=== PATIENT | male | born 2000 | race Caucasian/White ===

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

== ENCOUNTER 2022-06-11 02:23 | Emergency (ER) | payer OTHER, SELFPAY ==
[2022-06-11 02:45] VITALS: BP 144/68; PULSE 100; RESP 18; O2SAT 95
--- NOTE | 2022-06-11 02:59 | ED_ITS ---
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 Still has female pelvic organs. Is on testosterone. No longer has menstrual cycles is here for evaluation of less than 8 hours of lower abdominal discomfort. He stated that he did have a loose bowel movement earlier today. He would not describe it as diarrhea just soft. Some nausea but no vomiting. No urinary symptoms. No vaginal bleeding. No prior abdominal surgeries. Was driving to the emergency department when he had to car repairer pullman because the symptoms worsened. EMS was called. He received fentanyl prior to arrival. Related Data Allergies Allergy/AdvReac Type Severity Reaction Status Date / Time codeine Allergy Verified 06/11/22 02:45 Review of Systems Constitutional Constitutional: Denies fever(s) Cardiovascular Cardiovascular: Reports system reviewed and no additional complaints, except as documented Respiratory Respiratory: Reports system reviewed and no additional complaints, except as documented Gastrointestinal Gastrointestinal: Reports as per HPI and Reports system reviewed and no additional complaints, except as documented Genitourinary Genitourinary: Reports system reviewed and no additional complaints, except as documented and Reports as per HPI Musculoskeletal Musculoskeletal: Reports system reviewed and no additional complaints, except as documented Integumentary/Breasts Skin/Breast: Reports system reviewed and no additional complaints, except as documented Neurologic Neurologic: Reports system reviewed and no additional complaints, except as documented Hematologic/Lymphatic On Anticoagulants: No Patient History Medical History Anxiety Social History Smoking Status: Current every day smoker Smoking Status: Current every day smoker tobacco type: vaping alcohol intake frequency: holidays/special occasions only Substance Use Type: marijuana Exam Initial Vital Signs Initial Vital Signs: Vital Signs Pulse Rate 100 H 06/11/22 02:45 Respiratory Rate 18 06/11/22 02:45 Blood Pressure 144/68 H 06/11/22 02:45 Pulse Oximetry 95 06/11/22 02:45 Oxygen Delivery Method 06/11/22 02:45 Const General: cooperative and comfortable HENMT Head: normal to inspection and normocephalic Resp Effort & Inspection: normal respiratory effort Auscultation: clear to auscultation bilaterally Cardio Rate: regular rate Rhythm: regular rhythm GI Inspection: normal to inspection and non-distended Palpation: soft and tender (Lower abdomen) Back/Spine/Pelvis Back: No CVA tenderness Skin General: no rashes or lesions noted Neuro General: patient alert, patient awake and moves all extremities Extrem General: normal to inspection and capillary refill normal Course Orders Ordered: ED Orders 06/11/22 02:27 Urinalysis and Microscopic Stat Urine Culture Stat 06/11/22 02:30 Complete Blood Count AUTO DIFF Stat Comprehensive Metabolic Panel Stat Lipase Stat 06/11/22 03:00 CT abdomen pelvis w con Stat Discontinued Medications Sodium Chloride (Normal Saline 0.9%) 1,000 mls @ 1,000 mls/hr IV BOLUS ONE Stop: 06/11/22 03:58 Last Admin: 06/11/22 03:10 Dose: 1,000 mls/hr Documented By: CAPRI Vital Signs Vital signs: Vital Signs - 8 hr 06/11/22 02:45 Pulse Rate 100 H Respiratory Rate 18 Blood Pressure 144/68 H Pulse Oximetry 95 Oxygen Delivery Method Room Air Medical Decision Making Lab Data Lab results reviewed: Yes I reviewed the patient's lab results. Result diagrams: 06/11/22 02:30 06/11/22 02:30 Labs: Lab Results 06/11/22 06/11/22 06/11/22 Range/Units 02:27 02:30 02:30 WBC 17.1 H (4.5-11.0) X10^3/uL RBC 4.80 (4.5-5.9) X10^6/uL Hgb 14.9 (13.5-17.5) g/dL Hct 43.0 (41-53) % MCV 89.7 (80-100) fL MCH 31.1 (26-34) PG MCHC 34.7 (30-36) % RDW 13.0 (11.6-14.8) % Plt Count 243 (150-400) X10^3/uL Neut % (Auto) 80.3 H (50-75) % Lymph % (Auto) 11.3 L (25-40) % Falls % (Auto) 6.8 (3-14) % Eos % (Auto) 1.3 L (2-4) % Baso % (Auto) 0.3 (0-2) % Neut # (Auto) 50749 H (4156-8041) /uL Lymph # (Auto) 1900 (6666-8193) /uL Falls # (Auto) 1200 H (0-900) /uL Eos # (Auto) 200 (0-450) /uL Baso # (Auto) 0 (0-100) /uL Sodium 141 (137-145) mmol/L Potassium 3.7 (3.4-5.1) mmol/L Chloride 109 H (98-107) mmol/L Carbon Dioxide 21 L (22-32) mmol/L BUN 11 (9-20) mg/dL Creatinine 1.00 (0.66-1.25) mg/dL Estimated GFR > 60 (>60) mL/min BUN/Creatinine Ratio 11.0 (6-22) Glucose 89 (70-100) mg/dL Calcium 8.6 (8.4-10.2) mg/dL Total Bilirubin 0.7 (0.2-1.3) mg/dL AST 23 (17-59) IU/L ALT 21 (<50) IU/L Alkaline Phosphatase 59 (38-126) U/L Total Protein 6.8 (6.3-8.2) g/dL Albumin 4.2 (3.5-5.0) g/dL Globulin 2.6 (1.7-4.1) g/dL Albumin/Globulin Ratio 1.6 (1.0-2.8) Lipase 413 H (23-300) U/L Urine Color Yellow Urine Appearance Clear Urine pH 6.5 (4.5-8.0) Ur Specific Rowley 1.010 (1.000-1.035) Urine Protein Negative (Negative) Urine Glucose (UA) Negative (Negative) g/dL Urine Ketones Negative (NEGATIVE) Urine Occult Blood Negative (Negative) Urine Nitrate Negative (Negative) Urine Bilirubin Negative (NEGATIVE) Urine Urobilinogen 0.2 (0.2) E.U./dL Ur Leukocyte Esterase 1+ H (NEGATIVE) Urine RBC None seen (0-5/HPF) Urine WBC 0-1/hpf (0-5/HPF) Ur Squamous Epith Cells 0-1 /hpf (0-5/HPF) Urine Bacteria Occasional (0-1) D (None) Ur Culture Indicated? Specimen cultured Point of Care Testing Test Results Negative Point of care testing: Point of Care Testing Test Results Negative Imaging Data CT scan - abdomen/pelvis: Radiologist's Impression: No evidence of colitis with diverticulitis, no bowel obstruction, obstructive uropathy, or acute appendicitis No CT findings to explain lower abdominal pain MDM Narrative Medical decision making narrative: Patient reports that his abdominal pain is improving and is now becoming ?manageable ?does have a leukocytosis. No urinary symptoms consistent with a urinary tract infection. No skin changes. We did discuss the possibility of other pelvic organ issues to include ovarian torsion however secondary to the improvement of the pain we will hold on further workup to include ultrasound for now. Will discharge home and have him continue to take all of his current medications. He is given return precautions. He expressed understanding and agreement. Discharge Plan Departure Patient Disposition: Home Clinical Impression: Abdominal pain Instructions: DI for Abdominal Pain-Adult Activity Restrictions/Additional Instructions: The CT scan today did not give us any specific reason for your abdominal discomfort. The urine did not show any signs of an infection. There is no odilia cation for any specific antibiotics. I would not be surprised if you continue to have some loose stool/diarrhea over the next 24 hours. Contact your primary doctor for follow-up. If your symptoms worsen or you develop new symptoms please return to the emergency department for further evaluation.
[2022-06-11 03:00] LABS: Appearance Urine UA CLEAR; Bilirubin Urine UA NEGATIVE (NEGATIVE); Color Urine UA YELLOW; Glucose Urine UA NEGATIVE (Negative); Ketones Urine UA NEGATIVE (NEGATIVE); Leukocyte Esterase Urine UA 1+ (NEGATIVE); Nitrite Urine UA NEGATIVE (Negative); Occult Blood Urine UA NEGATIVE (Negative); Protein Urine UA NEGATIVE (Negative); Urobilinogen Urine UA 0.2 E.U./dL (0.2); pH Urine UA 6.5 (4.5-8.0)
--- NOTE | 2022-06-11 03:00 | DI.CT.S_ITS ---
PROCEDURE: CT ABDOMEN PELVIS W CON INDICATIONS: Lower abdominal pain TECHNIQUE: After the administration of intravenous contrast, axial sections acquired from the lung bases to the pubic symphysis. Coronal and sagittal reformats were performed. For radiation dose reduction, the following was used: automated exposure control, adjustment of mA and/or kV according to patient size. COMPARISON: None. FINDINGS: Image quality: Excellent. Lung bases: Unremarkable. Heart: No significant findings. ABDOMEN: Liver: Unremarkable. Gallbladder: Mildly contracted, which compromises evaluation. No surrounding inflammatory changes. Biliary ducts: Unremarkable. Pancreas: Unremarkable. Spleen: Normal in size. A splenule is noted in the left adrenal region. Adrenal Glands: Unremarkable. Kidneys and Ureters: Unremarkable. Stomach and Bowel: The appendix is normal in size at the right lower quadrant. Small bowel loops are nondilated. No signs of acute diverticulitis. Peritoneum: No pneumoperitoneum. Trace free fluid in the pelvis is nonspecific and may be physiologic. Trace fluid is also seen along the pericolic gutters bilaterally. Ventral Wall: No hernias. Abdominal Nodes: No retroperitoneal or mesenteric adenopathy by size criteria. Vessels: Aorta and inferior vena cava are normal in size. PELVIS: Pelvic Organs: Unremarkable. Bladder: Unremarkable. Pelvic Nodes: No enlarged lymph nodes. Miscellaneous: No hernias are seen. Bones: Unremarkable. IMPRESSION: 1. No acute abnormality identified in the abdomen or pelvis. Normal appendix. 2. Trace free fluid in the pelvis is not specific and may be physiologic. There is no significant discrepancy when compared to the overnight preliminary report. Dictated by: Jayden Jacobo M.D. on 06/11/2022 at 8:25 Approved by: Jayden Jacobo M.D. on 06/11/2022 at 8:31
[2022-06-11 03:02] LABS: Add Manual Diff / Slide Review NO; Alanine Aminotransferase 21 IU/L (<50); Albumin 4.2 g/dL (3.5-5.0); Albumin Globulin Ratio 1.6 (1.0-2.8); Alkaline Phosphatase 59 U/L (38-126); Aspartate Aminotransferase 23 IU/L (17-59); Basophils Absolute Auto 0 /uL (0-100); Basophils Percent Auto 0.3 % (0-2); Bilirubin Total 0.7 mg/dL (0.2-1.3); Blood Urea Nitrogen 11 mg/dL (9-20); Calcium 8.6 mg/dL (8.4-10.2); Carbon Dioxide 21 mmol/L (22-32); Chloride 109 mmol/L (98-107); Eosinophils Absolute Auto 200 /uL (0-450); Eosinophils Percent Auto 1.3 % (2-4); Estimated Glomerular Filt Rate > 60 mL/min (>60); Globulin 2.6 g/dL (1.7-4.1); Glucose 89 mg/dL (70-100); HEMOLYSIS 15 (0-50); Hemoglobin 14.9 g/dL (13.5-17.5); Lipase 413 U/L (23-300); Lymphocytes Absolute Auto 1900 /uL (1100-4500); Lymphocytes Percent Auto 11.3 % (25-40); Mean Corpuscular HGB Conc 34.7 % (30-36); Mean Corpuscular Hemoglobin 31.1 PG (26-34); Mean Corpuscular Volume 89.7 fL (80-100); Monocytes Absolute Auto 1200 /uL (0-900); Monocytes Percent Auto 6.8 % (3-14); Neutrophils Absolute Auto 13700 /uL (1500-7000); Neutrophils Percent Auto 80.3 % (50-75); Platelet Count 243 X10^3/uL (150-400); Potassium 3.7 mmol/L (3.4-5.1); Sodium 141 mmol/L (137-145); Total Protein 6.8 g/dL (6.3-8.2); White Blood Cell Count 17.1 X10^3/uL (4.5-11.0)
[2022-06-11 03:08] LABS: Bacteria Urine Occasional (0-1); RBC Urine None Seen (0-5/HPF); WBC Urine 0-1/HPF (0-5/HPF)
[2022-06-11 03:09] LABS: Culture Indicated Urine Specimen Cultured; Squamous Epithelial Cell Urine 0-1 /HPF (0-5/HPF)
[2022-06-11] MEDS: SODIUM CHLORIDE 0.9% 1,000 ML 1000 ML IV (03:10)
[2022-06-11 04:34] VITALS: BP 108/56; PULSE 77; O2SAT 95
== END 2022-06-11 04:35 | disposition home or self-care (01) ==
PROVIDERS: Emergency Provider Emergency Medicine
DX: R10.30 Lower abdominal pain, unspecified (principal)
CPT/HCPCS: 74177; 80053; 81001; 81025; 83690; 85025; 87086; 99283; 99284; Q9967

== ENCOUNTER → 2025-11-02 13:33 | Outpatient (CLI) | payer MEDICARE, MEDICAID, SELFPAY ==
[2025-11-02 15:20] LABS: Urine N gonorrhoeae NOT DETECTED
[2025-11-02 15:52] LABS: Urine Chlamydia DETECTED
== END ==
PROVIDERS: Visit Provider Nurse Practitioner Family
DX: Z72.51 High risk heterosexual behavior (principal)
CPT/HCPCS: 87491; 87591

== ENCOUNTER → 2025-11-02 14:09 | Outpatient (CLI) | payer MEDICARE, MEDICAID, SELFPAY ==
[2025-11-03 15:03] LABS: Hepatitis B Surface Antigen NEGATIVE s/c (NEGATIVE)
[2025-11-03 15:16] LABS: HIV 1 & 2 Ab/Ag 4th Gen Combo NEGATIVE (NEGATIVE)
[2025-11-03 15:47] LABS: Hep C Virus Ab w/Reflex Quant NEGATIVE s/c (NEGATIVE)
== END ==
PROVIDERS: Referring Provider Nurse Practitioner Family; Visit Provider Nurse Practitioner Family
DX: Z72.51 High risk heterosexual behavior (principal)
CPT/HCPCS: 36415; 86592; 86803; 87340; 87389; 87529

== ENCOUNTER 2025-11-06 19:02 | Emergency (ER) | payer MEDICARE, MEDICAID, SELFPAY ==
[2025-11-06 19:07] VITALS: BP 168/101; PULSE 76; RESP 18; TEMP 37.3; O2SAT 95; BMI 31.8
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
== END 2025-11-06 20:01 | disposition home or self-care (01) ==
PROVIDERS: Emergency Provider Family Medicine
DX: F41.8 Other specified anxiety disorders (principal)
CPT/HCPCS: 99281; 99283